=== PATIENT | male | born 1990 | race Hispanic/Latino ===

== ENCOUNTER 2018-11-28 17:14 | Inpatient (IN) | payer OTHER ==
[~2018-11-28] VITALS: Ht 175.3 cm; Wt 65.5 kg
[2018-11-28 18:06] LABS: APPEARANCE,URINE CLEAR (CLEAR); BASOPHILS % (AUTO) 0.2 % (0.0-5.0); BILIRUBIN,URINE NEGATIVE (NEGATIVE); COLOR,URINE YELLOW (YELLOW); EOSINOPHILS % (AUTO) 0.2 % (0.0-8.0); GLUCOSE, URINE (UA) NEGATIVE (NEGATIVE); HEMATOCRIT 41.5 % (42-54); KETONES,URINE NEGATIVE (NEGATIVE); LEUKOCYTE ESTERASE ,URINE NEGATIVE (NEGATIVE); LYMPHOCYTES % (AUTO) 7.7 % (21.0-51.0); MEAN CORPUSCULAR HEMOGLOBIN 31.5 pg (27.0-33.0); MEAN CORPUSCULAR HGB CONC 33.9 g/dL (32.0-36.0); MEAN CORPUSCULAR VOLUME 92.9 fL (79-99); MONOCYTES % (AUTO) 5.8 % (3.0-13.0); NEUTROPHILS % (AUTO) 86.1 % (40.0-77.0); NITRATE,URINE NEGATIVE (NEGATIVE); OCCULT BLOOD,URINE NEGATIVE (NEGATIVE); PLATELET COUNT (AUTO) 187 K/uL (130-400); PROTEIN,URINE NEGATIVE (NEGATIVE); RED BLOOD CELL COUNT(AUTO) 4.47 MIL/uL (4.50-6.20); RED CELL DISTRIBUTION WIDTH 12.4 % (11.0-15.5); UROBILINOGEN,URINE 0.2 mg/dL (0.2-1.0); WHITE BLOOD COUNT (AUTO) 14.5 K/uL (4.8-10.8)
[2018-11-28 18:25] LABS: POTASSIUM 3.8 mmol/L (3.5-5.1)
[2018-11-28 18:29] LABS: ALBUMIN 4.1 g/dL (3.5-5.0); BILIRUBIN,DIRECT 0.2 mg/dL (0.0-0.3); BILIRUBIN,TOTAL 1.2 mg/dL (0.2-1.0); TOTAL PROTEIN, SERUM 7.6 g/dL (6.0-8.3)
[2018-11-28] MEDS ORDERED: IOHEXOL 350 MG/ML 100ML INFUS..BTL IV ONE (18:50)
[2018-11-28] MEDS ORDERED: ONDANSETRON HCL 4 MG/2 ML VIAL ONE (19:48)
[2018-11-28] MEDS ORDERED: CEFOXITIN SODIUM 2 GM VIAL ONE ×2 (19:49→23:34)
[2018-11-28] MEDS ORDERED: MORPHINE SULFATE 2 MG/ML 1ML SYG ONE (19:49)
[2018-11-28] MEDS ORDERED: LACTATED RINGERS 1000ML 0 ML IV ONE (19:50)
[2018-11-28] MEDS ORDERED: SODIUM CHLORIDE 0.9% 100 ML IV ONE (19:51)
[2018-11-29] VITALS (22 sets, daily range): BP systolic 91–153; BP diastolic 51–94
[2018-11-29] MEDS ORDERED: ONDANSETRON HCL 4 MG/2 ML VIAL IVP PRN (00:30)
[2018-11-29] MEDS ORDERED: MEPERIDINE HCL 50 MG TABLET PO PRN (00:30)
[2018-11-29] MEDS ORDERED: MEPERIDINE-PF 25 MG/ML SYG IVP PRN (00:45)
[2018-11-29] MEDS: LACTATED RINGERS 1000ML 1,000 ML IV SCH ×3 (00:53→16:30)
[2018-11-29] MEDS: CEFOXITIN SODIUM 2 GM VIAL IVP SCH ×4 (03:39→21:00)
[2018-11-29] MEDS ORDERED: BUPIVACAINE/EPI/PF 0.5% 30ML VIAL IJ ONE (06:08)
[2018-11-29] MEDS ORDERED: DEXAMETHASONE SOD PHOSPHATE 10MG/ML 1ML VIAL ONE (06:22)
[2018-11-29] MEDS ORDERED: LIDOCAINE PF 2% 5ML ABBOJECT ONE (06:22)
[2018-11-29] MEDS ORDERED: SUCCINYLCHOLINE 200MG/10ML SYR ONE (06:22)
[2018-11-29] MEDS ORDERED: PROPOFOL 10 MG/ML 20ML VIAL IV ONE (06:23)
[2018-11-29] MEDS ORDERED: NEOSTIGMINE 5MG/5ML SYR IV ONE ×2 (06:23→07:32)
[2018-11-29] MEDS ORDERED: MIDAZOLAM HCL 1 MG/ML 2ML VIAL ONE (06:23)
[2018-11-29] MEDS ORDERED: ROCURONIUM 10MG/1ML SYR 10 MG/ML ML ONE (06:23)
[2018-11-29] MEDS ORDERED: FENTANYL CITRATE PF 50 MCG/1 ML 2ML VIAL ONE ×2 (06:23→06:44)
[2018-11-29] MEDS ORDERED: ONDANSETRON HCL 4 MG/2 ML VIAL ONE (06:23)
[2018-11-29] MEDS ORDERED: GLYCOPYRROLATE 1 MG/5 ML SYRINGE ONE ×2 (06:23→07:32)
[2018-11-29] MEDS ORDERED: KETOROLAC TROMETHAMINE 30MG/ML ONE (07:49)
[2018-11-29] MEDS: TRAMADOL HCL 50 MG TABLET PO PRN ×2 (12:12→21:00)
[2018-11-29] MEDS ORDERED: TRAMADOL HCL 50 MG TABLET PO PRN (12:15)
[2018-11-29] MEDS ORDERED: ACETAMINOPHEN 325 MG TAB PO PRN (12:15)
--- NOTE | 2018-11-29 18:00 | NUR ---
CONTACTED DR DEWITT ABOUT PATIENT HAVING NAUSEA AFTER EATING AND WAS GIVEN ZOFRAN IV , ORDERS TO HOLD DISCHARGE TILL TOMORROW. AND MAY DISCONTINUE ANTIBIOTICS
[2018-11-30] VITALS: BP_SYST 106; BP_SYST 115; BP_DIAS 59; BP_DIAS 74
[2018-11-30] MEDS: LACTATED RINGERS 1000ML 1,000 ML IV SCH ×2 (00:30→08:30)
[2018-11-30] MEDS: CEFOXITIN SODIUM 2 GM VIAL IVP SCH ×3 (02:22→14:00)
[2018-11-30] MEDS: TRAMADOL HCL 50 MG TABLET PO PRN (03:50)
[2018-11-30 04:00] VITALS: BP 91/52
[2018-11-30 07:31] VITALS: BP 98/68
[2018-11-30 11:22] VITALS: BP 101/55
--- NOTE | 2018-11-30 14:52 | NUR ---
ANGUS MCCONNELL ROUNDED ON PATIENT AND ORDERS RECEIVED FOR DISCHARGE AND FOLLOW-UP IN 2 WEEKS . PATIENT GIVEN INSTRUCTIONS ON FOLLOW-UP CARE OF OP SITES AND FOLLOW-UP APPOINTMENT December AT 10:30. IV REMOVED WITH CATHETER INTACT PRESSURE HELD TILL BLEEDING STOPPED AND THEN SITE DRESSED. NO QUESTIONS OR CONCERNS AT THIS TIME. PATIENT TAKING BY WHEELCHAIR TO LOBBY AND LEFT WITH FATHER FOR HOME
--- NOTE | 2018-11-30 17:12 | NUR ---
CM NOTE PER RN REPORT, PT ALERT, INDP , AMB AND NO DME. WILL FOLLOW POST OP. DETAILED CM ASSESSMENT DEFERRED Addendum: 11/30/18 at 1713 by ELIZABETH WARE RN CM Amended: Links added.
== END 2018-11-30 14:48 | disposition home or self-care (01) | DRG 343 ==
LOC: EDH 17:14 → EDHIP 17:15 → 4CH 11-29 00:12
PROVIDERS: ADMIT Surgery; ATTEND Surgery
PROC: 0DTJ4ZZ Resection of Appendix, Percutaneous Endoscopic Approach (ICD-10-PCS; principal; 2018-11-29 06:26)
DX: K35.80 Unspecified acute appendicitis (principal)
CPT/HCPCS: 36415; 74177; 80048; 80076; 81003; 83690; 85025; 88304; A4344; G0378; J0330; J0694; J1100; J1885; J2001; J2175; J2250; J2405; J2704; J2710; J3010; J3490; J7030; J7120; Q9967